=== PATIENT | male | born 1970 | race Caucasian/White ===

== ENCOUNTER 2022-07-03 12:20 | Emergency (ER) | payer MEDICAID, SELFPAY ==
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
[2022-07-03 12:38] VITALS: BP 134/69; PULSE 106; RESP 18; TEMP 36.3; O2SAT 95; BMI 28.8
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
[2022-07-03 13:24] LABS: MANUAL DIFF FLAG NO
[2022-07-03 13:27] LABS: Basophils Percent Auto 0.2 % (0-2); Eosinophils Percent Auto 0.1 % (0-4); Hematocrit 43.4 % (42.0-52.0); Hemoglobin 14.9 g/dl (14.0-18.0); Imm Gran Pct Auto 0.6 % (0.0-0.4); Lymphocytes Absolute Auto 1.8 X10*3/uL (1.2-4.9); Lymphocytes Percent Auto 11.2 % (20-40); Mean Corpuscular HGB Conc 34.3 g/dl (31.0-36.0); Mean Corpuscular Hemoglobin 32.1 pg (27.0-33.0); Mean Corpuscular Volume 93.5 fL (80.0-98.0); Mean Platelet Volume 8.8 fL (9.4-12.4); Neutrophils Absolute Auto 13.3 x10*3/uL (2.0-8.3); Neutrophils Percent Auto 81.9 % (45-73); Platelet Count 284 X10*3/uL (160-400); Red Blood Count 4.64 X10*6/uL (4.60-5.80); Red Cell Distribution Width 13.4 % (11.0-16.0); White Blood Count 16.2 X10*3/uL (4.8-10.8)
[2022-07-03 13:35] LABS: Prothrombin Time 11.2 SEC (10.0-13.1)
[2022-07-03 13:37] LABS: Partial Thromboplastin Time 32.4 SEC (26.0-36.4)
[2022-07-03 13:41] LABS: COVID-19 Test Negative (Negative); IDNOW Serial# 9DB6401D
[2022-07-03 13:50] LABS: Alanine Aminotransferase 31 U/L (0-40); Albumin Level 4.1 g/dL (3.5-5.0); Alkaline Phosphatase 91 U/L (39-117); Anion Gap 18 (12-20); Aspartate Amino Transferase 42 U/L (5-37); Bilirubin Direct < 0.2 mg/dL (0.0-0.5); Bilirubin Total 0.4 mg/dL (0.0-1.0); Blood Urea Nitrogen 17 mg/dL (9-16); Carbon Dioxide 20 mmol/L (22-29); Chloride 103 mmol/L (96-108); Creatinine Clr Calc Pharmacy 133.3; Estimated Glomerular Filt Rate > 60; Glucose Random 95 mg/dL (60-115); Magnesium 1.9 mg/dL (1.6-2.6); Potassium 3.8 mmol/L (3.3-5.1); Sodium 137 mmol/L (135-145); Total Protein 7.4 g/dL (6.5-8.0)
[2022-07-03 13:51] VITALS: BP 174/90; PULSE 100; RESP 16; TEMP 36.7; O2SAT 94
--- NOTE | 2022-07-03 13:54 | PC.NURSE ---
patient a&ox3, neck collar intact, iv started, vitals obtained-stable, pt c/o bilateral arm pain, mid chest tonia with inspiration only, neck pain, back pain all of which he describes as 7/10 pain, pt has +csm/pulses in upper extremities. pt awaiting ct scan, will continue to monitor
[2022-07-03] MEDS: iohexoL 350 MG/ML 100 ML INFUS..BTL IV (14:55)
--- NOTE | 2022-07-03 15:24 | PC.NURSE ---
pt c/o discomfort with c-collar, pt stated I am going to rip this thing off provider notified- head scan had come back negative, provider okd removal of collar, this nurse removed collar.
[2022-07-03 15:35] LABS: Ethanol 36 mg/dL
[2022-07-03 15:53] VITALS: BP 153/85; PULSE 91; RESP 18; TEMP 37.1; O2SAT 96
--- NOTE | 2022-07-03 15:55 | PC.NURSE ---
patient a&ox3, vss, pt c/o 03/31 generalized pain, call childress within reach, will continue to monitor
== END 2022-07-03 16:40 | disposition home or self-care (01) ==
PROVIDERS: Physician Assistant; Emergency Provider Emergency Medicine
DX: S22.31XA Fracture of one rib, right side, initial encounter for closed fracture (principal); S00.01XA Abrasion of scalp, initial encounter; F10.20 Alcohol dependence, uncomplicated; R51.9 Headache, unspecified; M54.2 Cervicalgia; M54.50 Low back pain, unspecified; M54.6 Pain in thoracic spine; Y90.1 Blood alcohol level of 20-39 mg/100 ml; V03.10XA Pedestrian on foot injured in collision with car, pick-up truck or van in traffic accident, initial encounter; Y93.9 Activity, unspecified; Y92.410 Unspecified street and highway as the place of occurrence of the external cause; Y99.9 Unspecified external cause status; Z20.822 Contact with and (suspected) exposure to COVID-19; Z79.899 Other long term (current) drug therapy
CPT/HCPCS: 36415; 70450; 71260; 72125; 74177; 80048; 80076; 82077; 83735; 85025; 85610; 85730; 87635; 99284; Q9967